=== PATIENT | male | born 1995 | race Caucasian/White ===

== ENCOUNTER 2020-11-01 01:10 | Emergency (ER) | payer OTHER, SELFPAY ==
--- NOTE | 2020-11-01 01:23 | DI.US.S_ITS ---
PROCEDURE: US ABDOMEN LIMITED INDICATIONS: PAIN TECHNIQUE: Real-time focused scanning was performed of the abdomen, with image documentation. COMPARISON: None. FINDINGS: Liver is normal in size and homogeneous in echotexture. No focal hepatic mass lesions. Sludge is noted in the gallbladder. No gallstones. No gallbladder wall thickening with gallbladder wall measuring 2.2 millimeters. No pericholecystic fluid. No sonographic Hung sign. Biliary tree is nondilated. Common bile duct measures 3.5 millimeters. Pancreas is obscured by bowel gas and cannot be evaluated. IMPRESSION: No sonographic evidence of cholelithiasis or cholecystitis. Gallbladder sludge noted. If there is continued clinical concern for cholecystitis, a nuclear medicine HIDA scan should be considered for further evaluation Dictated by: Venus Chambers MD, PhD on 11/01/2020 at 7:15 Approved by: Venus Chambers MD, PhD on 11/01/2020 at 7:16
[2020-11-01 01:30] VITALS: BP 128/78; PULSE 50; RESP 18; TEMP 36.8; O2SAT 100; BMI 25.4
[2020-11-01 01:33] VITALS: PULSE 49; O2SAT 100
--- NOTE | 2020-11-01 01:33 | ED.ABDPAIN ---
HPI - Abdominal Pain General Chief Complaint: Abdominal Pain Stated Complaint: having gall bladder pain x 6 weeks Time Seen by Provider: 11/01/20 01:15 Source: patient Mode of arrival: Ambulatory Limitations: no limitations History of Present Illness HPI narrative: 25M nonsmoker with noncontributory medical history presents with the chief complaint of severe epigastric pain which started a few hours ago. It is sharp and stabbing and radiates to the back. He's been nauseated but denies any vomiting. Denies any fever or chills. Patient is had multiple episodes not on like this over the past 6 weeks. He has seen his primary care provider who has him scheduled for an outpatient ultrasound given the suspicion of possible gallbladder disease. He states the pain is worse with eating or drinking and moderately worse with motion. He states it improves with remaining still. He denies any history of surgeries. His last oral intake for solids was at 6:30 p.m. and he had some water about an hour prior to his arrival. Related Data Home Medications Medication Instructions Recorded Confirmed cephalexin [Keflex] 500 mg PO BID #0 04/27/12 ibuprofen 600 mg PO Q6HP #0 04/27/12 Previous Rx's Medication Instructions Recorded hydrocodone-acetaminophen 1 tab PO Q4-6H PRN #10 tab 11/01/20 ondansetron 4 mg PO TID-QID PRN #10 tab 11/01/20 Allergies Allergy/AdvReac Type Severity Reaction Status Date / Time CYCLINE Allergy Unknown Uncoded 10/08/17 11:48 Review of Systems Constitutional Constitutional: Denies chills, Denies fatigue, Denies fever(s), Denies frequent falls, Denies lethargy and Denies weakness Eyes Eyes: Denies change in vision, Denies eye discharge, Denies irritation and Denies loss of vision ENT Ears, Nose, Mouth, and Throat: Denies change in voice, Denies dizziness, Denies neck pain, Denies sore throat and Denies throat swelling Cardiovascular Cardiovascular: Denies chest pain, Denies irregular heart rhythm, Denies lightheadedness, Denies palpitations, Denies dyspnea, Denies dyspnea on exertion and Denies orthopnea Respiratory Respiratory: Denies cough, Denies dyspnea, Denies dyspnea on exertion and Denies wheezing Gastrointestinal Gastrointestinal: Reports abdominal pain, Denies change in bowel habits, Denies diarrhea, Reports nausea and Denies vomiting Musculoskeletal Musculoskeletal: Denies neck pain and Denies numbness Integumentary/Breasts Skin/Breast: Denies pruritus, Denies erythema, Denies rash and Denies wounds Neurologic Neurologic: Denies behavioral changes, Denies confusion, Denies dizziness, Denies frequent falls, Denies loss of vision, Denies numbness and Denies weakness Psychiatric Psychiatric: Denies anxiety, Denies behavioral changes, Denies confusion, Denies depression, Denies homicidal ideation and Denies suicidal ideation Endocrine Endocrine: Denies fatigue, Denies flushing and Denies palpitations Hematologic/Lymphatic Hematologic/Lymphatic: Denies easy bruising Allergic/Immunologic Allergic/Immunologic: Denies urticaria, Denies throat swelling and Denies wheezing Patient History Social History Smoking Status: Never smoker Smoking Status: Never smoker alcohol intake frequency: 0-2 drinks per day Substance Use Type: does not use Exam Narrative Exam Narrative: GENERAL: [25] year old patient appears stated age. Well-nourished, well-developed patient, in mild distress. HEAD: Atraumatic. Normocephalic. EYES: Pupils equal round and reactive. Extraocular motions intact. No scleral icterus. No injection or drainage. ENT: Nose without bleeding, purulent drainage. Throat without erythema, tonsillar hypertrophy or exudate. Airway patent. NECK: Trachea midline. Non tender CARDIOVASCULAR: Regular rate and rhythm without murmurs, gallops, or rubs. RESPIRATORY: Clear to auscultation. Breath sounds equal bilaterally. No wheezes, rales, or rhonchi. GASTROINTESTINAL: Abdomen soft, tender right upper quadrant, nondistended. EXTREMITIES: No edema or joint tenderness. BACK: Nontender without deformity or crepitance. No flank tenderness. NEURO: AOx3. SKIN: No rash or erythema of visible areas Initial Vital Signs Initial Vital Signs: Vital Signs Temperature 98.2 F 11/01/20 01:30 Pulse Rate 50 L 11/01/20 01:30 Respiratory Rate 18 11/01/20 01:30 Blood Pressure 128/78 11/01/20 01:30 Pulse Oximetry 100 11/01/20 01:30 Course Orders Ordered: ED Orders 11/01/20 01:23 US abdomen limited Stat 11/01/20 01:30 Complete Blood Count AUTO DIFF Stat Comprehensive Metabolic Panel Stat Lipase Stat Discontinued Medications Hydrocodone Bitart/Acetaminophen (Hydrocodone/Acet 5/325 Prepack) 1 bottle MISC SEEINSTR ONE Stop: 11/01/20 02:35 Last Admin: 11/01/20 02:45 Dose: 1 bottle Documented by: JAY Hydromorphone HCl (Hydromorphone 0.5 Mg Inj) 0.5 mg IV NOW ONE Stop: 11/01/20 02:09 Last Admin: 11/01/20 02:10 Dose: 0.5 mg Documented by: JUNG Sodium Chloride (Normal Saline 0.9%) 1,000 mls @ 1,000 mls/hr IV BOLUS ONE Stop: 11/01/20 02:21 Lactated Ringer's (Lactated Ringers) 1,000 mls @ 1,000 mls/hr IV BOLUS ONE Stop: 11/01/20 02:23 Last Infusion: 11/01/20 02:45 Dose: 0 mls/hr Documented by: Admin: 11/01/20 01:46 Dose: 1,000 mls/hr Documented by: JUNG Ondansetron HCl (Ondansetron 4 Mg Odt Prepack) 1 bottle MISC SEEINSTR ONE Stop: 11/01/20 02:35 Last Admin: 11/01/20 02:45 Dose: 1 bottle Documented by: JAY Consultations Consultation #1: discussion with Dr. Almendarez. No surgical indications. Recommends DC, clear liquids then low fat and follow up with him in the office Vital Signs Vital signs: Vital Signs - 8 hr 11/01/20 01:30 11/01/20 01:33 11/01/20 02:02 Temperature 98.2 F Pulse Rate 50 L 49 L 53 L Respiratory Rate 18 Blood Pressure 128/78 Pulse Oximetry 100 100 97 11/01/20 02:04 11/01/20 02:30 11/01/20 02:31 Temperature Pulse Rate 52 L 52 L 54 L Respiratory Rate Blood Pressure 155/83 H 129/75 Pulse Oximetry 100 98 98 MDM - Abdominal Pain Lab Data Result diagrams: 11/01/20 01:30 11/01/20 01:30 Labs: Lab Results 11/01/20 11/01/20 Range/Units 01:30 01:30 WBC 9.0 (4.5-11.0) X10^3/uL RBC 4.86 (4.5-5.9) X10^6/uL Hgb 14.9 (13.5-17.5) g/dL Hct 43.5 (41-53) % MCV 89.5 (80-100) fL MCH 30.6 (26-34) PG MCHC 34.2 (30-36) % RDW 12.9 (11.6-14.8) % Plt Count 279 (150-400) X10^3/uL Neut % (Auto) 55.1 (50-75) % Lymph % (Auto) 30.7 (25-40) % [place] % (Auto) 9.1 (3-14) % Eos % (Auto) 3.9 (2-4) % Baso % (Auto) 1.2 (0-2) % Neut # (Auto) 5000 (0720-4369) /uL Lymph # (Auto) 2800 (3553-9160) /uL Titus # (Auto) 800 (0-900) /uL Eos # (Auto) 400 (0-450) /uL Baso # (Auto) 100 (0-100) /uL Sodium 138 (137-145) mmol/L Potassium 3.6 (3.4-5.1) mmol/L Chloride 106 (98-107) mmol/L Carbon Dioxide 22 (22-32) mmol/L BUN 20 (9-20) mg/dL Creatinine 0.93 (0.66-1.25) mg/dL Estimated GFR > 60.0 (>60) mL/min BUN/Creatinine Ratio 21.5 (6-22) Glucose 108 H (70-100) mg/dL Calcium 10.0 (8.4-10.2) mg/dL Total Bilirubin 0.5 (0.2-1.3) mg/dL AST 33 (17-59) IU/L ALT 29 (<50) IU/L Alkaline Phosphatase 69 (38-126) U/L Total Protein 7.5 (6.3-8.2) g/dL Albumin 4.6 (3.5-5.0) g/dL Globulin 2.9 (1.7-4.1) g/dL Albumin/Globulin Ratio 1.6 (1.0-2.8) Lipase 161 (23-300) U/L Point of care testing: Urine Dip Bedside Urine Glucose Negative Bedside Urine Bilirubin - Negative Bedside Urine Ketone +/- 5 Urine Specific [place] 1.030 Bedside Urine Occult Blood - Negative Bedside Urine pH 6 Bedside Urine Protein - Negative Bedside Urine Urobilinogen - Negative Bedside Urine Nitrite - Negative Bedside Urine Leukocytes - Negative Esterase Imaging Data US - abdomen: Radiologist's Impression: gallstones, no evidence of cholecystitis or common bile duct stone Discharge Plan Departure Patient Disposition: Home Clinical Impression: Disease of gallbladder Activity Restrictions/Additional Instructions: *You have been diagnosed with [upper abdominal pain likely related to gallbladder disease. Your labs and ultrasound are reassuring and there is no indication for admission or surgery tonight.] *What to do: *Please continue to take your regular medications as directed. [ x] New medication prescriptions sent to your pharmacy: [[facility] in [place] ] [ ] New medication written as a paper prescription [ ] No new medications given *Please follow up with your Dr. Almendarez ([facility]), call for an appointment. Let them know you were seen in the Emergency Department and that we ask that you be seen in follow up. We will electronically transmit a record of today's note if your PCP is in our system *Clear liquids for the next 24-48 hours and then low fat until your follow up *Return to Emergency Department if you should have any new, worsening or concerning symptoms, such as [fever greater than 101 F, shaking chills, worsening pain, persistent vomiting or other bothersome symptoms] Prescriptions: New hydrocodone-acetaminophen 5-325 mg tablet 1 tab PO Q4-6H PRN (Reason: pain) Qty: 10 RF: 0 ondansetron 4 mg tablet,disintegrating 4 mg PO TID-QID PRN (Reason: nausea and vomiting) Qty: 10 RF: 0 No Action cephalexin [Keflex] 500 MG capsule 500 mg PO BID Qty: 0 RF: 0 ibuprofen 600 MG tablet 600 mg PO Q6HP Qty: 0 RF: 0 Referrals: Anant Almendarez MD [Physician] -
[2020-11-01 01:38] LABS: Add Manual Diff / Slide Review NO; Basophils Absolute Auto 100 /uL (0-100); Basophils Percent Auto 1.2 % (0-2); Eosinophils Absolute Auto 400 /uL (0-450); Eosinophils Percent Auto 3.9 % (2-4); Hematocrit 43.5 % (41-53); Hemoglobin 14.9 g/dL (13.5-17.5); Lymphocytes Absolute Auto 2800 /uL (1100-4500); Lymphocytes Percent Auto 30.7 % (25-40); Mean Corpuscular HGB Conc 34.2 % (30-36); Mean Corpuscular Hemoglobin 30.6 PG (26-34); Mean Corpuscular Volume 89.5 fL (80-100); Monocytes Absolute Auto 800 /uL (0-900); Monocytes Percent Auto 9.1 % (3-14); Neutrophils Absolute Auto 5000 /uL (1500-7000); Neutrophils Percent Auto 55.1 % (50-75); Platelet Count 279 X10^3/uL (150-400); Red Blood Cell Count 4.86 X10^6/uL (4.5-5.9); Red Cell Distribution Width 12.9 % (11.6-14.8)
[2020-11-01] MEDS: LACTATED RINGERS 1,000 ML 1000 ML IV (01:46)
[2020-11-01 01:52] LABS: Alanine Aminotransferase 29 IU/L (<50); Albumin 4.6 g/dL (3.5-5.0); Albumin Globulin Ratio 1.6 (1.0-2.8); Alkaline Phosphatase 69 U/L (38-126); Aspartate Aminotransferase 33 IU/L (17-59); BUN Creatinine Ratio 21.5 (6-22); Bilirubin Total 0.5 mg/dL (0.2-1.3); Blood Urea Nitrogen 20 mg/dL (9-20); Carbon Dioxide 22 mmol/L (22-32); Chloride 106 mmol/L (98-107); Estimated Glomerular Filt Rate > 60.0 mL/min (>60); Globulin 2.9 g/dL (1.7-4.1); Glucose 108 mg/dL (70-100); HEMOLYSIS < 15 (0-50); Lipase 161 U/L (23-300); Potassium 3.6 mmol/L (3.4-5.1); Sodium 138 mmol/L (137-145); Total Protein 7.5 g/dL (6.3-8.2)
[2020-11-01 02:02] VITALS: PULSE 53; O2SAT 97
[2020-11-01 02:04] VITALS: BP 155/83; PULSE 52; O2SAT 100
[2020-11-01] MEDS: HYDROMORPHONE 0.5 MG INJ IV (02:10)
[2020-11-01 02:30] VITALS: PULSE 52; O2SAT 98
[2020-11-01 02:31] VITALS: BP 129/75; PULSE 54; O2SAT 98
[2020-11-01] MEDS: ONDANSETRON 4 MG ODT PREPACK 1 BOTTLE MISC (02:45)
[2020-11-01] MEDS: HYDROCODONE/ACET 5/325 PREPACK 1 BOTTLE MISC (02:45)
== END 2020-11-01 02:53 | disposition home or self-care (01) ==
PROVIDERS: Emergency Provider Emergency Medicine
DX: K82.9 Disease of gallbladder, unspecified (principal); R11.0 Nausea
CPT/HCPCS: 36415; 76705; 80053; 81003; 83690; 85025; 96361; 96374; 99284; J1170

== ENCOUNTER → 2020-11-13 09:00 | Outpatient (CLI) | payer OTHER, SELFPAY ==
[2020-11-13 10:33] LABS: COVID19 -Nasal RAPID Negative (Negative)
== END ==
PROVIDERS: PCP Family Medicine; Visit Provider Surgery
DX: Z20.822 Contact with and (suspected) exposure to COVID-19 (principal)
CPT/HCPCS: 87635; C9803

== ENCOUNTER 2020-11-14 14:55 | Day surgery (SDC) | payer OTHER, SELFPAY ==
[2020-11-14] VITALS (15 sets, daily range): BP systolic 106–141; BP diastolic 53–76; PULSE 50–63; RESP 8–55; TEMP 36.4–37.2; O2SAT 96–100; BMI 24.7
--- NOTE | 2020-11-14 | PATH_ITS ---
[facility] Accession Number: [id number] . 01 Material submitted: . gallbladder - GALLBLADDER . 02 Diagnosis: Gallbladder, Cholecystectomy: Chronic cholecystitis. No choleliths identified. Negative for dysplasia and malignancy. [facility] 11/20/2020 1454 Local . 02 Electronically signed: . Demi Hoffmann MD, Pathologist NPI- [id number] . 01 Gross description: . The specimen is received in formalin, labeled gallbladder and consists of 6.0 x 2.5 x 1.8 cm previously disrupted gallbladder with a 0.2 cm in diameter cystic duct. The serosa is pink-green and smooth. Opening reveals green viscous bile with no choleliths identified. The mucosa is collins-pink and velvety and the wall thickness measures 0.1 cm. [employer] sections are submitted to include the en face cystic duct margin in cassette A1. ([id number]) /[facility] 11/16/2020 1045 Local . 02 Pathologist provided ICD-10: K81.1 . 02 CPT . 209106 Performed at: 01 [facility] [address] [facility] [address], [place], [place] [id number] MD Fili Delaney MD Phone: [phone] Performed at: 02 [facility] [place] [id number] [place], [place] [id number] MD Demi Hoffmann MD Phone: [phone]
[2020-11-14] MEDS: ACETAMINOPHEN 325 MG TABLET 975 MG PO (15:43)
[2020-11-14] MEDS: SCOPOLAMINE 1 PATCH TOP (15:44)
[2020-11-14] MEDS: LACTATED RINGERS 1,000 ML 100 ML IV ×2 (15:44→17:15)
--- NOTE | 2020-11-14 16:18 | PM.PREOP ---
Pre-operative Note Interval Note History & Physical reviewed/Exam performed by Physician: Yes Changes to H&P: No
[2020-11-14] MEDS: CEFAZOLIN 1 GM VIAL 2 GM IV (16:50)
--- NOTE | 2020-11-14 16:57 | SUR.OPER ---
Supine on padded OR bed, head on pillow, safety belt at thigh, left arm padded and tucked at side. Right arm secured on padded arm oard <90 degrees abduction. Legs uncrossed. Padded footboard in place. Tape over blanket to secure lower legs.
[2020-11-14] MEDS: BUPIVACAINE 0.25% (PF) VIAL 30 ML INJ (17:03)
--- NOTE | 2020-11-14 17:48 | P.OP_ITS ---
Operative Date/Time/Diagnoses Date of procedure: 11/14/20 Time of procedure: 17:48 Pre-op diagnosis: Biliary colic Post-op diagnosis: same Procedure & Clinicians Procedure: Laparoscopic cholecystectomy Same procedure as scheduled: Yes Indications: Biliary colic Surgeon: Anant Amlendarez Anesthesia Type: General Operative Notes Findings: Chronic cholecystitis. Omentum plastered to the gallbladder. Critical view of safety Specimen(s): other (Gallbladder) Procedure in detail: The patient was placed supine on the table and bilateral lower extremity compression devices were applied. Anesthesia was induced they were intubated with an endotracheal tube and received 2g of Ancef. A time-out was performed. They were prepped and draped in sterile fashion. An infraumbilical incision was made, the umbilical stalk was elevated and the fascia was sharply incised entering the abdomen atraumatically. A blunt tip 12mm balloon trocar was then inserted, pneumoperitoneum was established and inspection of the abdomen demonstrated no evidence of injury. They were placed head up and right side up and then a 11 mm port was placed high in the epigastrium and two 5mm in the right upper quadrant. Omentum was plastered to the gallbladder consistent with chronic cholecystitis. The omentum was carefully taken down off the gallbladder. The gallbladder was grasped by the fundus and retracted over the liver and retracted laterally by the infundibulum. Using electrocautery the lateral plane between the gallbladder and the liver was opened towards the fundus. The gallbladder was then retracted laterally and the medial plane was developed in the same manner. With the gallbladder mobilized the bottom of the cystic plate was visualized. The hepatocystic triangle was meticulosly skeletonized using hook electrocautery of all fat and fibrous tissue from both the front and the back. Only two structures were then clearly seen entering the gallbladder the cystic duct and the cystic artery. With the critical view of safety fully established the cystic duct was clipped twice proximally and once distally using the 10 mm clip applied under direct v isualization and then sharply divided. The cystic artery was divided in the same fashion. The gallbladder was removed from the liver bed using electro cautery. The liver bed was then inspected for hemostasis and this was achieved. The abdomen was irrigated with sterile saline and inspection was made that showed the clips in good position. The specimen was removed using Endo-Catch. The abdomen was desufflated. The umbilical fascia was closed with 0 Vicryl in a [id number] fashion under direct visualization. Skin incisions were irrigated and closed with 4-0 Monocryl. 30 ml of 0.25% bupivacaine was infiltrated into the subcutaneous tissue of the incisions. The wounds were sealed with Dermabond. Patient emerged from anesthesia was extubated and transferred to recovery in stable condition. The sponge and instrument count at the end of the operation was correct. Complications: none Post-operative Condition: stable Disposition: same day surgery
[2020-11-14] MEDS: ONDANSETRON 4 MG/2 ML INJ IV (17:54)
[2020-11-14] MEDS: OXYCODONE IR 5 MG TABLET PO ×2 (17:56→18:36)
[2020-11-14] MEDS: HYDROMORPHONE 2 MG INJ IV (18:17)
== END 2020-11-14 19:21 | disposition home or self-care (01) ==
PROVIDERS: PCP Family Medicine; Referring Provider Surgery; Visit Provider Surgery
PROC: 0FT44ZZ Resection of Gallbladder, Percutaneous Endoscopic Approach (ICD-10-PCS; CPT 47562; principal; 2020-11-14 15:45)
DX: K81.1 Chronic cholecystitis (principal)
CPT/HCPCS: 47562; 82962; J0690; J1100; J1170; J2250; J2405; J2704; J3010